=== PATIENT | male | born 1975 | race Caucasian/White ===

== ENCOUNTER 2019-06-22 14:55 | Emergency (ER) | payer BC ==
[~2019-06-22] VITALS: Ht 170.2 cm; Wt 94.8 kg
[2019-06-22 15:07] VITALS: Ht 170.2 cm; Wt 94.8 kg
[2019-06-22 16:51] VITALS: BP 136/84
== END 2019-06-22 16:40 | disposition home or self-care (01) ==
LOC: ED 14:55
DX: Z13.9 Encounter for screening, unspecified (principal); R05 Cough; R50.9 Fever, unspecified; J02.9 Acute pharyngitis, unspecified
CPT/HCPCS: J7030; Q0092